=== PATIENT | male | born 1945 | race Caucasian/White ===

== ENCOUNTER 2025-02-12 16:40 | Emergency (ER) | payer OTHER, SELFPAY ==
[2025-02-12] VITALS (12 sets, daily range): BP systolic 158–192; BP diastolic 70–86; PULSE 74–84; RESP 15–25; TEMP 36.6; O2SAT 92–99; BMI 47.1
--- NOTE | 2025-02-12 16:51 | EKG_ITS ---
[address] [address] [address] [address] Test Date: 2025-02-12 Pat Name: Yuan Vang Department: Room: Gender: Male [employer] Supervisor: GUZMAN : 1945 Requested By: Order Number: [id number] Reading MD: Anders Dempsey Measurements Intervals [place] Rate: 76 P: 52 OH: 154 QRS: -6 QRSD: 92 T: 37 QT: 414 QTc: 465 Interpretive Statements Normal sinus rhythm Electronically Signed On 02-14-2025 0:11:45 PDT by Anedrs Dempsey
--- NOTE | 2025-02-12 16:58 | ED.GENADULT ---
HPI - General Adult <Rose Piña DO - Last Filed: 02/13/25 19:14> General Chief complaint: Fall Stated complaint: Lower back pain Time Seen by Provider: 02/12/25 16:53 Source: patient, RN notes reviewed and old records reviewed Mode of arrival: EMS Limitations: no limitations History of Present Illness HPI narrative: 79-year-old male history of hypertension, dyslipidemia, diabetes type 2, chronic back pain who presents with complaint of syncopal episode. Patient was going to a family member's graduation attempted to ambulate across grassy gradually area with his walker despite family asking him to be pushed in a wheelchair got lightheaded has a loss of consciousness fell to the ground. Patient complains of increased low back pain afterwards. Increased pain with movement in his legs but denies radiation down his legs. No numbness tingling or weakness. He denies any chest pressure. He does feel little short of breath. He denies any fevers or chills. No cold cough or congestion symptoms. Has had some nausea had 1 episode of emesis with the EMS. Denies any incontinence. No issues with bowel movements or urination recently but has a indwelling catheter for the past 5 months. Home medications include metformin, losartan, statin, Lyrica, Effexor and BuSpar. No anticoagulants or aspirin. Family and patient state only prior surgeries rotator cuff. Reports allergies to Wellbutrin and morphine. No tobacco, no alcohol, no recreational drugs. Patient lives in [facility] they drove here for the graduation. Patient was accompanied by his , both patient and state he was DNR/DNI. Related Data Allergies Allergy/AdvReac Type Severity Reaction Status Date / Time bupropion (From Wellbutrin) Allergy Unknown Verified 02/12/25 17:02 morphine Allergy Unknown Verified 02/12/25 17:02 Review of Systems <Rose Piña, DO - Last Filed: 02/13/25 19:14> Review of Systems ROS Unobtainable: All systems reviewed & are unremarkable except as noted in HPI and below Patient History <Rose Piña DO - Last Filed: 02/13/25 19:14> Medical History (Updated 02/12/25 @ 21:26 by Carol Connolly MD) Chronic back pain Hyperlipidemia Hypertension Diabetes Social History Smoking Status: Never smoker Exam <Rose Piña DO - Last Filed: 02/13/25 19:14> Narrative Exam Narrative: GEN: Patient appears in moderate distress. Obese male. HEAD: No evidence of trauma, no raccoon/Bishop sign. NECK: Nontender, painless range of motion, trachea midline Negative for Nexus criteria, no midline line tenderness, distracting injury, altered mental status, neuro deficit, recent EtOH. EYES: PERRLA, EOMI ENT: External inspection normal, trachea is midline, TM's are normal no hemotypanum, Nares are clear, no septal hematoma, no dental or oral injury, airway is normal and with normal occlusion, No bony tenderness RESP: Chest is nontender and has symmetric movement, no ecchymosis, breath sounds are normal no crackles, wheezes or rales CVS: Heart sounds are normal, no murmur noted, No JVD. ABG/GI: Nontender, soft, normal bowel sounds, no distention, no organomegaly, pelvic rock is negative NEURO: Oriented AOx3, neuro is grossly intact, sensation and motor is normal all 4 extremities moving, cranial nerves II through XII are intact, GCS is 15 PSYCH: Normal mood and affect SKIN: Intact, warm and dry, no crepitus and without decubitus BACK: No CVA tenderness, no vertebral tenderness, no step-off's, no crepitus EXT: Atraumatic, hips are nontender, patient has a increased pain with straight leg raise bilaterally but left greater than right. no pedal edema, normal color and temperature, normal range of motion of extremities with normal tendon exam, 2+ pulses in all four extremities Initial Vital Signs Initial Vital Signs: Vital Signs Temperature 98 F 02/12/25 17:01 Pulse Rate 75 02/12/25 17:01 Respiratory Rate 19 02/12/25 17:01 Blood Pressure 158/74 H 02/12/25 17:01 Pulse Oximetry 92 02/12/25 17:01 Oxygen Delivery Method Nasal Cannula 02/12/25 17:01 Oxygen Flow Rate 4 02/12/25 17:01 <Carol Connolly MD - Last Filed: 02/13/25 07:05> Initial Vital Signs Initial Vital Signs: Vital Signs Temperature 98 F 02/12/25 17:01 Pulse Rate 75 02/12/25 17:01 Respiratory Rate 19 02/12/25 17:01 Blood Pressure 158/74 H 02/12/25 17:01 Pulse Oximetry 92 02/12/25 17:01 Oxygen Delivery Method Nasal Cannula 02/12/25 17:01 Oxygen Flow Rate 4 02/12/25 17:01 Course <Rose Piña, DO - Last Filed: 02/13/25 19:14> Orders Ordered: Discontinued Medications Sodium Chloride (Normal Saline 0.9%) 1,000 mls @ 150 mls/hr IV CONT KARISHMA Last Infusion: 02/12/25 22:29 Dose: 150 mls/hr Documented By: Admin: 02/12/25 18:01 Dose: 150 mls/hr Documented By: JIMY Acetaminophen (Ofirmev) 1,000 mg in 100 mls @ 400 mls/hr IV NOW ONE Stop: 02/12/25 17:41 Last Infusion: 02/12/25 18:30 Dose: Infused Documented By: Admin: 02/12/25 18:04 Dose: 400 mls/hr Documented By: JIMY Ketorolac Tromethamine (Ketorolac 30 Mg/Ml Vial) 15 mg IV NOW ONE Stop: 02/12/25 20:46 Last Admin: 02/12/25 21:00 Dose: 15 mg Documented By: KEVIN Metoclopramide HCl (Metoclopramide 10 Mg/2 Ml Inj) 10 mg IV NOW ONE Stop: 02/12/25 17:43 Last Admin: 02/12/25 18:00 Dose: 10 mg Documented By: JIMY Oxycodone/Acetaminophen (Oxycodone/Acetaminophen 5/325 Tablet) 2 tab PO NOW ONE Stop: 02/12/25 20:46 Last Admin: 02/12/25 21:00 Dose: 2 tab Documented By: KEVIN Vital Signs Vital signs: Vital Signs - 8 hr 02/12/25 17:01 02/12/25 19:00 02/12/25 19:30 Temperature 98 F Pulse Rate 75 75 78 Respiratory Rate 19 15 15 Blood Pressure 158/74 H Pulse Oximetry 92 97 99 Oxygen Delivery Method Nasal Cannula Oxygen Flow Rate 4 02/12/25 19:38 02/12/25 19:38 Temperature Pulse Rate 84 Respiratory Rate 17 Blood Pressure 192/86 H Pulse Oximetry 96 Oxygen Delivery Method Room Air Oxygen Flow Rate <Carol Connolly MD - Last Filed: 02/13/25 07:05> Orders Ordered: Discontinued Medications Sodium Chloride (Normal Saline 0.9%) 1,000 mls @ 150 mls/hr IV CONT KARISHMA Last Infusion: 02/12/25 22:29 Dose: 150 mls/hr Documented By: Admin: 02/12/25 18:01 Dose: 150 mls/hr Documented By: JIMY Acetaminophen (Ofirmev) 1,000 mg in 100 mls @ 400 mls/hr IV NOW ONE Stop: 02/12/25 17:41 Last Infusion: 02/12/25 18:30 Dose: Infused Documented By: Admin: 02/12/25 18:04 Dose: 400 mls/hr Documented By: JIMY Ketorolac Tromethamine (Ketorolac 30 Mg/Ml Vial) 15 mg IV NOW ONE Stop: 02/12/25 20:46 Last Admin: 02/12/25 21:00 Dose: 15 mg Documented By: KEVIN Metoclopramide HCl (Metoclopramide 10 Mg/2 Ml Inj) 10 mg IV NOW ONE Stop: 02/12/25 17:43 Last Admin: 02/12/25 18:00 Dose: 10 mg Documented By: JIMY Oxycodone/Acetaminophen (Oxycodone/Acetaminophen 5/325 Tablet) 2 tab PO NOW ONE Stop: 02/12/25 20:46 Last Admin: 02/12/25 21:00 Dose: 2 tab Documented By: KEVIN Vital Signs Vital signs: Vital Signs - 8 hr 02/12/25 17:01 02/12/25 19:00 02/12/25 19:30 Temperature 98 F Pulse Rate 75 75 78 Respiratory Rate 19 15 15 Blood Pressure 158/74 H Pulse Oximetry 92 97 99 Oxygen Delivery Method Nasal Cannula Oxygen Flow Rate 4 02/12/25 19:38 02/12/25 19:38 Temperature Pulse Rate 84 Respiratory Rate 17 Blood Pressure 192/86 H Pulse Oximetry 96 Oxygen Delivery Method Room Air Oxygen Flow Rate Medical Decision Making <Rose Piña DO - Last Filed: 02/13/25 19:14> Lab Data 02/12/25 18:02 02/12/25 18:02 Labs: Lab Results 02/12/25 Range/Units 18:02 WBC 10.5 (4.5-11.0) X10^3/uL RBC 4.03 L (4.5-5.9) X10^6/uL Hgb 12.6 L (13.5-17.5) g/dL Hct 38.1 L (41-53) % MCV 94.6 (80-100) fL MCH 31.2 (26-34) PG MCHC 33.0 (30-36) % RDW 15.4 H (11.6-14.8) % Plt Count 216 (150-400) X10^3/uL Neut % (Auto) 66.6 (50-75) % Lymph % (Auto) 22.5 L (25-40) % [place] % (Auto) 7.8 (3-14) % Eos % (Auto) 2.5 (2-4) % Baso % (Auto) 0.6 (0-2) % Neut # (Auto) 7000 (7108-2817) /uL Lymph # (Auto) 2400 (4546-0753) /uL [place] # (Auto) 800 (0-900) /uL Eos # (Auto) 300 (0-450) /uL Baso # (Auto) 100 (0-100) /uL Sodium 137 (137-145) mmol/L Potassium 3.7 (3.4-5.1) mmol/L Chloride 102 (98-107) mmol/L Carbon Dioxide 27 (22-32) mmol/L BUN 15 (9-20) mg/dL Creatinine 0.61 L (0.66-1.25) mg/dL Estimated GFR > 60 (>60) mL/min BUN/Creatinine Ratio 24.6 H (6-22) Glucose 145 H (70-99) mg/dL Calcium 8.4 (8.4-10.2) mg/dL Total Bilirubin 1.0 (0.2-1.3) mg/dL AST 40 (17-59) IU/L ALT 30 (<50) IU/L Alkaline Phosphatase 59 (38-126) U/L Total Creatine Kinase 62 (55-170) U/L Troponin I < 0.012 (0.01-0.034) ng/mL NT-Pro-B Natriuret Pep 22 (<450) pg/mL Total Protein 6.8 (6.3-8.2) g/dL Albumin 3.8 (3.5-5.0) g/dL Globulin 3.0 (1.7-4.1) g/dL Albumin/Globulin Ratio 1.3 (1.0-2.8) Lipase 24 (23-300) U/L ECG Data Attestation: I personally reviewed and interpreted this ECG as follows: Interpretation: Sinus rhythm rate of 76 [place] 154 QRS of 92 QTC of 465, no acute ST elevation depression noted. No priors for comparison. MDM Narrative Medical decision making narrative: 79-year-old male found to be hypoxic unclear if this was pre or post pain medications from EMS patient has a sounds like a syncopal episode after ambulating further distance than he typically would. Patient did have the sensation that he was about to pass out but it was also recently traveled from [place]. Labs labs show white count hemoglobin 12.6 platelets of 216, chemistries are appropriate BUN and creatinine are appropriate, glucose is 105 LFTs are negative troponins less than 0.012 with a BNP of EKG shows sinus rhythm rate of 76 Chest x-ray, cardiomegaly no acute cardiopulmonary abnormality CT head shows no acute intracranial pathology, chronic microvascular ischemic changes generalized parenchymal volume loss. CT cervical spine nondisplaced fracture through an osteophyte anterior of the C3 inferior endplate which has been sore nature. Acute fracture not excluded but there does not appear to be significant surrounding edema. No additional cervical spine fracture. CT chest angio PE protocol no acute pulmonary embolism, transverse fracture mid through TFL and 12 disc space and superior endplate of the T2 vertebral body extending to the left facet. Background bridging syndesmophytes all throughout the thoracic spine highly suspicious for ankylosing spondylitis. Cardiomegaly, main pulmonary artery enlarged 3.6 cm which can be seen in the setting pulmonary artery hypertension. CT abdomen pelvis CT abdomen pelvis without acute abnormalities, diverticulosis without acute diverticulitis. Normal appendix. Moderate multilevel lumbar spondylosis with the least moderate spinal canal stenosis and moderate bilateral neural foraminal stenosis L2 through 3 and L4 through 5 acute compression fractures or acute osseous abnormalities Patient had fentanyl EN route with EMS. <Carol Connolly MD - Last Filed: 02/13/25 07:05> Lab Data Labs: Lab Results 02/12/25 Range/Units 18:02 WBC 10.5 (4.5-11.0) X10^3/uL RBC 4.03 L (4.5-5.9) X10^6/uL Hgb 12.6 L (13.5-17.5) g/dL Hct 38.1 L (41-53) % MCV 94.6 (80-100) fL MCH 31.2 (26-34) PG MCHC 33.0 (30-36) % RDW 15.4 H (11.6-14.8) % Plt Count 216 (150-400) X10^3/uL Neut % (Auto) 66.6 (50-75) % Lymph % (Auto) 22.5 L (25-40) % [place] % (Auto) 7.8 (3-14) % Eos % (Auto) 2.5 (2-4) % Baso % (Auto) 0.6 (0-2) % Neut # (Auto) 7000 (2004-9206) /uL Lymph # (Auto) 2400 (6511-5754) /uL [place] # (Auto) 800 (0-900) /uL Eos # (Auto) 300 (0-450) /uL Baso # (Auto) 100 (0-100) /uL Sodium 137 (137-145) mmol/L Potassium 3.7 (3.4-5.1) mmol/L Chloride 102 (98-107) mmol/L Carbon Dioxide 27 (22-32) mmol/L BUN 15 (9-20) mg/dL Creatinine 0.61 L (0.66-1.25) mg/dL Estimated GFR > 60 (>60) mL/min BUN/Creatinine Ratio 24.6 H (6-22) Glucose 145 H (70-99) mg/dL Calcium 8.4 (8.4-10.2) mg/dL Total Bilirubin 1.0 (0.2-1.3) mg/dL AST 40 (17-59) IU/L ALT 30 (<50) IU/L Alkaline Phosphatase 59 (38-126) U/L Total Creatine Kinase 62 (55-170) U/L Troponin I < 0.012 (0.01-0.034) ng/mL NT-Pro-B Natriuret Pep 22 (<450) pg/mL Total Protein 6.8 (6.3-8.2) g/dL Albumin 3.8 (3.5-5.0) g/dL Globulin 3.0 (1.7-4.1) g/dL Albumin/Globulin Ratio 1.3 (1.0-2.8) Lipase 24 (23-300) U/L Imaging Data Chest CTA: Radiologist's Impression: PROCEDURE: CT ANGIO CHEST PE PROTOCOL INDICATIONS: syncope, low O2, hit head, Lower lumbar pain TECHNIQUE: After the administration of intravenous contrast, 2 mm thick sections acquired from the pulmonary apices to the posterior costophrenic angles. 3-dimensional maximum intensity projection (MIP) coronal and sagittal reformats were then acquired through the thorax. For radiation dose reduction, the following was used: automated exposure control, adjustment of mA and/or kV according to patient size. COMPARISON: [facility], CR, XR CHEST 1V, 02/12/2025, 17:17. FINDINGS: Image quality: Diagnostic. Pulmonary arteries: No intraluminal filling defects to suggest central pulmonary embolism. Main pulmonary artery measures 3.6 cm in diameter, which can be seen in the setting of pulmonary arterial hypertension. Lower Neck: No enlarged lymph nodes. Thyroid: No thyroid nodules which require sonographic follow up, per consensus guidelines. Axillae: No enlarged lymph nodes. Chest Wall: Unremarkable. Bones: Multilevel bridging osteophytes or syndesmophytes in the included spine, suspicious for ankylosing spondylitis or DISH. There is a transverse fracture through the disc space at the T11-12 level likely involving the superior endplate of T12 with surrounding soft tissue edema. Lucency is seen through the left-sided facet joints at the T11-12 level. There is multilevel osseous fusion across the facets throughout the lower thoracic spine. Lungs and Pleura: No pneumothorax or pleural effusions. Hypoventilatory changes with bilateral subsegmental atelectasis. No consolidation or suspicious nodules. Heart: Heart size is enlarged. No pericardial effusion. Thoracic Vessels: No aortic aneurysm. Mediastinum and Teresa: No enlarged lymph nodes. Esophagus: No wall thickening. No hiatal hernia. Upper Abdomen: Visualized upper abdomen solid organs and bowel loops appear normal. IMPRESSION: 1. No acute pulmonary embolus. 2. Transverse fracture mid through the T11-12 disc space and superior endplate of the T12 vertebral body extending into the left facet. Background bridging syndesmophytes throughout the thoracic spine are highly suspicious for ankylosing spondylitis. 3. Cardiomegaly. Main pulmonary artery is enlarged to 3.6 cm, which can be seen in the setting of pulmonary arterial hypertension. Findings were discussed with the referring provider, Dr. Piña, by telephone on 02/12/2025 at 6:30 PM. Approved by: Fredi Gillette M.D. on 02/12/2025 at 18:32 CT scan - abdomen/pelvis: Radiologist's Impression: PROCEDURE: CT ABDOMEN PELVIS W CON INDICATIONS: syncope, low O2, hit head, Lower lumbar pain TECHNIQUE: After the administration of intravenous contrast, axial sections acquired from the lung bases to the pubic symphysis. Coronal and sagittal reformats were performed. For radiation dose reduction, the following was used: automated exposure control, adjustment of mA and/or kV according to patient size. COMPARISON: None. FINDINGS: Image quality: Diagnostic. Lower Chest: Moderate bibasilar atelectasis. Coronary atherosclerotic vascular calcifications are noted. ABDOMEN: Liver: No solid mass. Gallbladder: No radiopaque gallstones or wall thickening. Biliary ducts: No biliary dilation. Pancreas: No ductal dilation. Spleen: Size is within normal limits. Adrenal Glands: No adrenal nodules. Kidneys and Ureters: No hydronephrosis. No solid mass. No complex renal cystic lesion which requires follow up. Exophytic posterior left renal cyst. Bilateral ureters are normal in course and caliber. Stomach and Bowel: Normal colonic caliber, without significant wall thickening. Scattered colonic diverticula without acute inflammation. No evidence for small bowel obstruction or associated inflammatory changes. Normal appendix. Peritoneum: No abnormal intraperitoneal fluid. No free air. Ventral Wall: No significant ventral hernia. Abdominal Nodes: No retroperitoneal or mesenteric adenopathy by size criteria. Vessels: Aorta and inferior vena cava are normal in size. PELVIS: Pelvic Organs: Unremarkable. Bladder: Urinary bladder is decompressed by Hines catheter. Pelvic Nodes: No enlarged lymph nodes. Miscellaneous: No inguinal hernias are seen. Bones: No aggressive osseous abnormality. No acute vertebral body compression fractures. Multilevel spondylitic changes throughout the imaged spine. No suspicious osseous lesions. Degenerative changes are most pronounced from L2-3 through L4-5 where there is at least moderate spinal canal stenosis and moderate bilateral neuroforaminal stenosis. IMPRESSION: CT abdomen and pelvis without acute abnormalities. Colonic diverticulosis without acute diverticulitis. Normal appendix. Moderate multilevel lumbar spondylosis with at least moderate spinal canal stenosis and moderate bilateral neuroforaminal stenosis of L2-3 through L4-5. Acute compression fractures or acute osseous abnormalities. Dictated by: Isaiah Schwarz M.D. on 02/12/2025 at 18:19 CT scan - head: Radiologist's Impression: ROCEDURE: CT HEAD/BRAIN WO CON INDICATIONS: syncope, hit head. Lspine pain, hypoxia TECHNIQUE: Noncontrast 4.5 mm thick angled axial sections acquired from the foramen magnum to the vertex, with coronal and sagittal reformats. For radiation dose reduction, the following was used: automated exposure control, adjustment of mA and/or kV according to patient size. COMPARISON: None. FINDINGS: Image quality: Diagnostic. CSF spaces: Basal cisterns are patent. No extra-axial fluid collections. The ventricles are symmetric in size and shape. Brain: No acute intracranial hemorrhage or mass effect. There is cerebral volume loss, with resultant ventricular and sulcal prominence. There are periventricular and deep white matter chronic small vessel ischemic changes. There is intracranial internal carotid artery atherosclerosis. Skull and face: Calvarium and visualized facial bones appear intact, without suspicious lesions. Sinuses: Visualized sinuses and mastoids are clear. IMPRESSION: 1. No acute intracranial pathology. 2. Chronic microvascular ischemic changes and generalized parenchymal volume loss. Approved by: Frdei Gillette M.D. on 02/12/2025 at 18:12 Chest x-ray: Radiologist's Impression: PROCEDURE: XR CHEST 1V INDICATIONS: syncope, low back pain after TECHNIQUE: One view of the chest was acquired. COMPARISON: None. FINDINGS: Surgical changes and devices: None. Lungs and pleura: Lungs are clear. No pleural effusions or pneumothorax. Mediastinum: Cardiac silhouette is enlarged. Bones and chest wall: No suspicious bony lesions. Overlying soft tissues appear unremarkable. IMPRESSION: Cardiomegaly. No acute cardiopulmonary abnormality is seen. Approved by: Fredi Gillette M.D. on 02/12/2025 at 17:52 CT - cervical spine: Radiologist's Impression: PROCEDURE: CT CERVICAL SPINE WO CON INDICATIONS: syncope, hit head. Lspine pain, hypoxia TECHNIQUE: Noncontrast 3 mm thick sections acquired from the skull base to the T4 level. Sagittal and coronal reformats were then constructed. For radiation dose reduction, the following was used: automated exposure control, adjustment of mA and/or kV according to patient size. COMPARISON: None. FINDINGS: Image quality: Excellent. Bones: Apparent nondisplaced fracture through an anterior osteophyte along the inferior endplate of the C3 vertebra. There does not appear to be significant adjacent soft tissue edema. Multilevel disc space narrowing and degenerative endplate changes. Bridging osteophytes are seen at the C4-5 and C5-6 levels as well as the C7-T1 level Multilevel uncovertebral joint and facet hypertrophy. Visualized superior ribs are intact. Soft tissues: Prevertebral soft tissues are normal in thickness. No paravertebral hematomas. No apical pneumothoraces. IMPRESSION: Nondisplaced fracture through an osteophyte anterior to the C3 inferior endplate, which is of uncertain age. Acute fracture is not excluded, but there does not appear to be significant surrounding edema. No additional cervical spine fracture is seen. Approved by: Fredi Gillette M.D. on 02/12/2025 at 18:20 MDM Narrative Medical decision making narrative: 79-year-old male found to be hypoxic unclear if this was pre or post pain medications from EMS patient has a sounds like a syncopal episode after ambulating further distance than he typically would. Patient did have the sensation that he was about to pass out but it was also recently traveled from [place]. Labs labs show white count hemoglobin 12.6 platelets of 216, chemistries are appropriate BUN and creatinine are appropriate, glucose is 105 LFTs are negative troponins less than 0.012 with a BNP of EKG shows sinus rhythm rate of 76 Chest x-ray, cardiomegaly no acute cardiopulmonary abnormality CT head shows no acute intracranial pathology, chronic microvascular ischemic changes generalized parenchymal volume loss. CT cervical spine nondisplaced fracture through an osteophyte anterior of the C3 inferior endplate which has been sore nature. Acute fracture not excluded but there does not appear to be significant surrounding edema. No additional cervical spine fracture. CT chest angio PE protocol no acute pulmonary embolism, transverse fracture mid through TFL and 12 disc space and superior endplate of the T2 vertebral body extending to the left facet. Background bridging syndesmophytes all throughout the thoracic spine highly suspicious for ankylosing spondylitis. Cardiomegaly, main pulmonary artery enlarged 3.6 cm which can be seen in the setting pulmonary artery hypertension. CT abdomen pelvis CT abdomen pelvis without acute abnormalities, diverticulosis without acute diverticulitis. Normal appendix. Moderate multilevel lumbar spondylosis with the least moderate spinal canal stenosis and moderate bilateral neural foraminal stenosis L2 through 3 and L4 through 5 acute compression fractures or acute osseous abnormalities Patient had fentanyl EN route with EMS. 847pm Images have been sent to [facility] with spine consult requested Patient and family updated on consultation requested and reason for wait. Patient typically uses up to 3 5 mg oxycodone tablets daily for chronic pain. He can take ibuprofen, does have normal renal function. He is given 15 mg of IV Toradol and 2 Percocet for his acute pain Findings reviewed with , spine surgery at [facility]. He requested the patient be transferred to [facility] ER for further evaluation to decide if bracing or surgical intervention would be most appropriate for further treatment of this T-spine fracture. S transport will be arranged. No evidence for stroke, acute coronary syndrome, infection, significant electrolyte abnormalities or alternate explanation for his syncopal episode today. He does note that he was walking much further than he typically will walk. He does use a walker. Discharge Plan Departure Patient Disposition: [facility] Clinical Impression: Traumatic fracture of spine at T12-L1 level Syncope Qualifiers: Syncope type: unspecified Qualified Code(s): R55 - Syncope and collapse Fall Qualifiers: Encounter type: initial encounter Qualified Code(s): W19.XXXA - Unspecified fall, initial encounter
--- NOTE | 2025-02-12 17:18 | DI.CT.S_ITS ---
PROCEDURE: CT HEAD/BRAIN WO CON INDICATIONS: syncope, hit head. Lspine pain, hypoxia TECHNIQUE: Noncontrast 4.5 mm thick angled axial sections acquired from the foramen magnum to the vertex, with coronal and sagittal reformats. For radiation dose reduction, the following was used: automated exposure control, adjustment of mA and/or kV according to patient size. COMPARISON: None. FINDINGS: Image quality: Diagnostic. CSF spaces: Basal cisterns are patent. No extra-axial fluid collections. The ventricles are symmetric in size and shape. Brain: No acute intracranial hemorrhage or mass effect. There is cerebral volume loss, with resultant ventricular and sulcal prominence. There are periventricular and deep white matter chronic small vessel ischemic changes. There is intracranial internal carotid artery atherosclerosis. Skull and face: Calvarium and visualized facial bones appear intact, without suspicious lesions. Sinuses: Visualized sinuses and mastoids are clear. IMPRESSION: 1. No acute intracranial pathology. 2. Chronic microvascular ischemic changes and generalized parenchymal volume loss. Approved by: Fredi Gillette M.D. on 02/12/2025 at 18:12
--- NOTE | 2025-02-12 17:18 | DI.RAD.S_ITS ---
PROCEDURE: XR CHEST 1V INDICATIONS: syncope, low back pain after TECHNIQUE: One view of the chest was acquired. COMPARISON: None. FINDINGS: Surgical changes and devices: None. Lungs and pleura: Lungs are clear. No pleural effusions or pneumothorax. Mediastinum: Cardiac silhouette is enlarged. Bones and chest wall: No suspicious bony lesions. Overlying soft tissues appear unremarkable. IMPRESSION: Cardiomegaly. No acute cardiopulmonary abnormality is seen. Approved by: Fredi Gillette M.D. on 02/12/2025 at 17:52
--- NOTE | 2025-02-12 17:18 | DI.CT.S_ITS ---
PROCEDURE: CT CERVICAL SPINE WO CON INDICATIONS: syncope, hit head. Lspine pain, hypoxia TECHNIQUE: Noncontrast 3 mm thick sections acquired from the skull base to the T4 level. Sagittal and coronal reformats were then constructed. For radiation dose reduction, the following was used: automated exposure control, adjustment of mA and/or kV according to patient size. COMPARISON: None. FINDINGS: Image quality: Excellent. Bones: Apparent nondisplaced fracture through an anterior osteophyte along the inferior endplate of the C3 vertebra. There does not appear to be significant adjacent soft tissue edema. Multilevel disc space narrowing and degenerative endplate changes. Bridging osteophytes are seen at the C4-5 and C5-6 levels as well as the C7-T1 level Multilevel uncovertebral joint and facet hypertrophy. Visualized superior ribs are intact. Soft tissues: Prevertebral soft tissues are normal in thickness. No paravertebral hematomas. No apical pneumothoraces. IMPRESSION: Nondisplaced fracture through an osteophyte anterior to the C3 inferior endplate, which is of uncertain age. Acute fracture is not excluded, but there does not appear to be significant surrounding edema. No additional cervical spine fracture is seen. Approved by: Fredi Gillette M.D. on 02/12/2025 at 18:20
--- NOTE | 2025-02-12 17:22 | DI.CT.S_ITS ---
PROCEDURE: CT ANGIO CHEST PE PROTOCOL INDICATIONS: syncope, low O2, hit head, Lower lumbar pain TECHNIQUE: After the administration of intravenous contrast, 2 mm thick sections acquired from the pulmonary apices to the posterior costophrenic angles. 3-dimensional maximum intensity projection (MIP) coronal and sagittal reformats were then acquired through the thorax. For radiation dose reduction, the following was used: automated exposure control, adjustment of mA and/or kV according to patient size. COMPARISON: [facility], CR, XR CHEST 1V, 02/12/2025, 17:17. FINDINGS: Image quality: Diagnostic. Pulmonary arteries: No intraluminal filling defects to suggest central pulmonary embolism. Main pulmonary artery measures 3.6 cm in diameter, which can be seen in the setting of pulmonary arterial hypertension. Lower Neck: No enlarged lymph nodes. Thyroid: No thyroid nodules which require sonographic follow up, per consensus guidelines. Axillae: No enlarged lymph nodes. Chest Wall: Unremarkable. Bones: Multilevel bridging osteophytes or syndesmophytes in the included spine, suspicious for ankylosing spondylitis or DISH. There is a transverse fracture through the disc space at the T11-12 level likely involving the superior endplate of T12 with surrounding soft tissue edema. Lucency is seen through the left-sided facet joints at the T11-12 level. There is multilevel osseous fusion across the facets throughout the lower thoracic spine. Lungs and Pleura: No pneumothorax or pleural effusions. Hypoventilatory changes with bilateral subsegmental atelectasis. No consolidation or suspicious nodules. Heart: Heart size is enlarged. No pericardial effusion. Thoracic Vessels: No aortic aneurysm. Mediastinum and Teresa: No enlarged lymph nodes. Esophagus: No wall thickening. No hiatal hernia. Upper Abdomen: Visualized upper abdomen solid organs and bowel loops appear normal. IMPRESSION: 1. No acute pulmonary embolus. 2. Transverse fracture mid through the T11-12 disc space and superior endplate of the T12 vertebral body extending into the left facet. Background bridging syndesmophytes throughout the thoracic spine are highly suspicious for ankylosing spondylitis. 3. Cardiomegaly. Main pulmonary artery is enlarged to 3.6 cm, which can be seen in the setting of pulmonary arterial hypertension. Findings were discussed with the referring provider, Dr. Piña, by telephone on 02/12/2025 at 6:30 PM. Approved by: Fredi Gillette M.D. on 02/12/2025 at 18:32
--- NOTE | 2025-02-12 17:22 | DI.CT.S_ITS ---
PROCEDURE: CT ABDOMEN PELVIS W CON INDICATIONS: syncope, low O2, hit head, Lower lumbar pain TECHNIQUE: After the administration of intravenous contrast, axial sections acquired from the lung bases to the pubic symphysis. Coronal and sagittal reformats were performed. For radiation dose reduction, the following was used: automated exposure control, adjustment of mA and/or kV according to patient size. COMPARISON: None. FINDINGS: Image quality: Diagnostic. Lower Chest: Moderate bibasilar atelectasis. Coronary atherosclerotic vascular calcifications are noted. ABDOMEN: Liver: No solid mass. Gallbladder: No radiopaque gallstones or wall thickening. Biliary ducts: No biliary dilation. Pancreas: No ductal dilation. Spleen: Size is within normal limits. Adrenal Glands: No adrenal nodules. Kidneys and Ureters: No hydronephrosis. No solid mass. No complex renal cystic lesion which requires follow up. Exophytic posterior left renal cyst. Bilateral ureters are normal in course and caliber. Stomach and Bowel: Normal colonic caliber, without significant wall thickening. Scattered colonic diverticula without acute inflammation. No evidence for small bowel obstruction or associated inflammatory changes. Normal appendix. Peritoneum: No abnormal intraperitoneal fluid. No free air. Ventral Wall: No significant ventral hernia. Abdominal Nodes: No retroperitoneal or mesenteric adenopathy by size criteria. Vessels: Aorta and inferior vena cava are normal in size. PELVIS: Pelvic Organs: Unremarkable. Bladder: Urinary bladder is decompressed by Hines catheter. Pelvic Nodes: No enlarged lymph nodes. Miscellaneous: No inguinal hernias are seen. Bones: No aggressive osseous abnormality. No acute vertebral body compression fractures. Multilevel spondylitic changes throughout the imaged spine. No suspicious osseous lesions. Degenerative changes are most pronounced from L2-3 through L4- 5 where there is at least moderate spinal canal stenosis and moderate bilateral neuroforaminal stenosis. IMPRESSION: CT abdomen and pelvis without acute abnormalities. Colonic diverticulosis without acute diverticulitis. Normal appendix. Moderate multilevel lumbar spondylosis with at least moderate spinal canal stenosis and moderate bilateral neuroforaminal stenosis of L2-3 through L4-5. Acute compression fractures or acute osseous abnormalities. Dictated by: Isaiah Schwarz M.D. on 02/12/2025 at 18:19 Approved by: Isaiah Schwarz M.D. on 02/12/2025 at 18:29
[2025-02-12] MEDS: METOCLOPRAMIDE 10 MG/2 ML INJ IV (18:00)
[2025-02-12] MEDS: SODIUM CHLORIDE 0.9% 1,000 ML 150 ML IV (18:01)
[2025-02-12] MEDS: ACETAMINOPHEN IV 1,000 MG/100 ML VIAL 400 MG IV (18:04)
[2025-02-12 18:09] LABS: Add Manual Diff / Slide Review NO; Basophils Absolute Auto 100 /uL (0-100); Basophils Percent Auto 0.6 % (0-2); Eosinophils Absolute Auto 300 /uL (0-450); Eosinophils Percent Auto 2.5 % (2-4); Hematocrit 38.1 % (41-53); Hemoglobin 12.6 g/dL (13.5-17.5); Lymphocytes Absolute Auto 2400 /uL (1100-4500); Lymphocytes Percent Auto 22.5 % (25-40); Mean Corpuscular Hemoglobin 31.2 PG (26-34); Mean Corpuscular Volume 94.6 fL (80-100); Monocytes Absolute Auto 800 /uL (0-900); Monocytes Percent Auto 7.8 % (3-14); Neutrophils Absolute Auto 7000 /uL (1500-7000); Neutrophils Percent Auto 66.6 % (50-75); Platelet Count 216 X10^3/uL (150-400); Red Blood Cell Count 4.03 X10^6/uL (4.5-5.9); Red Cell Distribution Width 15.4 % (11.6-14.8); White Blood Cell Count 10.5 X10^3/uL (4.5-11.0)
[2025-02-12 18:20] LABS: Alanine Aminotransferase 30 IU/L (<50); Albumin 3.8 g/dL (3.5-5.0); Albumin Globulin Ratio 1.3 (1.0-2.8); Alkaline Phosphatase 59 U/L (38-126); Aspartate Aminotransferase 40 IU/L (17-59); BUN Creatinine Ratio 24.6 (6-22); Blood Urea Nitrogen 15 mg/dL (9-20); Calcium 8.4 mg/dL (8.4-10.2); Carbon Dioxide 27 mmol/L (22-32); Chloride 102 mmol/L (98-107); Creatine Kinase 62 U/L (55-170); Estimated Glomerular Filt Rate > 60 mL/min (>60); Glucose 145 mg/dL (70-99); HEMOLYSIS < 15 (0-50); Lipase 24 U/L (23-300); Potassium 3.7 mmol/L (3.4-5.1); Sodium 137 mmol/L (137-145); Total Protein 6.8 g/dL (6.3-8.2)
[2025-02-12 18:32] LABS: Troponin I < 0.012 ng/mL (0.01-0.034)
[2025-02-12 18:39] LABS: NT-proBNP (BNP-Adult 18+) 22 pg/mL (<450)
[2025-02-12] MEDS: KETOROLAC 30 MG/ML VIAL 15 MG IV (21:00)
[2025-02-12] MEDS: OXYCODONE/ACETAMINOPHEN 5/325 TABLET 2 TAB PO (21:00)
== END 2025-02-12 22:32 | disposition short-term general hospital (02) ==
PROVIDERS: Emergency Medicine; Emergency Provider Emergency Medicine
DX: S22.089A Unspecified fracture of T11-T12 vertebra, initial encounter for closed fracture (principal); S32.019A Unspecified fracture of first lumbar vertebra, initial encounter for closed fracture; R55 Syncope and collapse; R06.02 Shortness of breath; S09.90XA Unspecified injury of head, initial encounter; W18.30XA Fall on same level, unspecified, initial encounter
CPT/HCPCS: 70450; 71045; 71275; 72125; 74177; 80053; 82550; 83690; 83880; 84484; 85025; 93005; 96361; 96365; 96375; 99285; J0131; J1885; J2765; Q9967